=== PATIENT | female | born 1950 ===

== ENCOUNTER 2020-10-04 13:57 | Day surgery (SDC) | payer MEDICARE, BC ==
[~2020-10-04] VITALS: Ht 165.1 cm; Wt 87.2 kg
[2020-10-04] MEDS ORDERED: CHLORHEXIDINE 15 ML UDC PO ONE (14:30)
[2020-10-04] MEDS ORDERED: LACTATED RINGERS 1,000 ML IV SCH (14:30)
[2020-10-04] MEDS ORDERED: LIDOCAINE-MPF 1%, 2ML INFIL ONE (14:30)
[2020-10-04] MEDS ORDERED: PLEASE ENTER HEIGHT AND WEIGHT MC SCH (14:30)
[2020-10-04] MEDS ORDERED: PLEASE ENTER ALLERGIES MC SCH (14:30)
[2020-10-04] MEDS ORDERED: CHLORHEXIDINE 15 ML UDC ONE (14:43)
[2020-10-04 14:59] VITALS: BP 175/99
[2020-10-04] MEDS ORDERED: LOVA20TA2 PO (15:11)
[2020-10-04] MEDS ORDERED: CARV25TA12 PO (15:11)
[2020-10-04] MEDS ORDERED: HYDR-2214 PO (15:11)
[2020-10-04] MEDS ORDERED: CLOB15CR19 HOMETP (15:11)
[2020-10-04] MEDS ORDERED: ALBU2.5V NEB (15:11)
[2020-10-04] MEDS ORDERED: POTA20PA31 PO (15:11)
[2020-10-04] MEDS ORDERED: METF500T27 PO (15:11)
[2020-10-04] MEDS ORDERED: TEMA15CA PO (15:11)
[2020-10-04] MEDS ORDERED: LISI1TAB20 PO (15:11)
[2020-10-04] MEDS ORDERED: CEPH-376 PO (15:11)
[2020-10-04 15:25] LABS: BASOPHILS % (AUTO) 1 % (0-1); EOSINOPHILS % (AUTO) 1 % (1-7); LYMPHOCYTES % (AUTO) 39 % (22-44); MEAN CORPUSCULAR HEMOGLOBIN 29.3 pg (27.0-34.8); MEAN CORPUSCULAR HGB CONC 33.6 g/dL (32.4-35.8); MEAN PLATELET VOLUME 7.8 fL (7.4-10.4); MONOCYTES % (AUTO) 8 % (2-9); NEUTROPHILS % (AUTO) 51 % (42-75); PLATELET COUNT 237 x10^3/uL (130-400); RED BLOOD COUNT 4.36 x10^6/uL (3.82-5.3); RED CELL DISTRIBUTION WIDTH 13.9 % (9.6-15.2)
[2020-10-04 15:35] LABS: ALANINE AMINOTRANSFERASE 23 U/L (12-78); ALBUMIN 3.9 g/dL (3.4-5.0); ANION GAP 4 mmol/L (5-15); CALCIUM 9.5 mg/dL (8.5-10.1); CHLORIDE 106 mmol/L (98-107); CREATININE 0.67 mg/dL (0.55-1.02)
[2020-10-04 15:37] LABS: MD NO
[2020-10-04 15:38] LABS: ALKALINE PHOSPHATASE 92 U/L (45-117); BILIRUBIN,TOTAL 0.9 mg/dL (0.2-1.0); TOTAL PROTEIN 7.2 g/dL (6.4-8.2)
[2020-10-04] MEDS ORDERED: FENTANYL PF 100 MCG/2ML ONE ×2 (16:56→18:14)
[2020-10-04] MEDS ORDERED: DEXAMETHASONE 4 MG/ML, 1ML ONE (17:48)
[2020-10-04] MEDS ORDERED: PROPOFOL 10 MG/ML, 20ML ONE (17:48)
[2020-10-04] MEDS ORDERED: ONDANSETRON 2MG/ML, 2ML ONE (17:48)
[2020-10-04] MEDS ORDERED: CEFAZOLIN 1,000 MG ONE ×2 (17:48→17:51)
[2020-10-04] MEDS ORDERED: PROMETHAZINE 25 MG/ML, 1ML IVPush PRN (18:00)
[2020-10-04] MEDS ORDERED: MEPERIDINE/PF 25MG/0.5ML IVPush PRN (18:00)
[2020-10-04] MEDS ORDERED: ALBUTEROL SULFATE 2.5 MG/3 ML NPPB PRN (18:00)
[2020-10-04] MEDS ORDERED: LABETALOL 5MG/ML, 20ML IV PRN (18:00)
[2020-10-04] MEDS ORDERED: ACETAMINOPHEN 325 MG TABLET PO PRN (18:00)
[2020-10-04] MEDS ORDERED: MIDAZOLAM 1 MG/ML, 2ML IV PRN (18:00)
[2020-10-04] MEDS ORDERED: OXYcodone 5 MG/5 ML ORAL.SOL UDC PO PRN (18:00)
[2020-10-04] MEDS ORDERED: HYDROmorphone 1 MG/ML, 1ML INJ IVPush PRN (18:00)
[2020-10-04] MEDS ORDERED: hydrALAzine 20 MG/ML, 1ML IV PRN (18:00)
[2020-10-04] MEDS ORDERED: OXYcodone 5 MG/5 ML ORAL.SOL UDC ONE (18:14)
[2020-10-04] MEDS: FENTANYL PF 100 MCG/2ML IV PRN ×2 (18:19→18:34)
[2020-10-04] MEDS ORDERED: hydrALAzine 20 MG/ML, 1ML ONE (18:42)
== END 2020-10-04 20:20 | disposition home or self-care (01) ==
LOC: OR 13:57
PROVIDERS: ATTEND Surgery
DX: L08.89 Other specified local infections of the skin and subcutaneous tissue (principal); I10 Essential (primary) hypertension; E78.5 Hyperlipidemia, unspecified; E11.9 Type 2 diabetes mellitus without complications; J45.909 Unspecified asthma, uncomplicated; Z20.822 Contact with and (suspected) exposure to COVID-19; Z79.84 Long term (current) use of oral hypoglycemic drugs; Z79.891 Long term (current) use of opiate analgesic; Z79.899 Other long term (current) drug therapy; Z88.0 Allergy status to penicillin; Z82.49 Family history of ischemic heart disease and other diseases of the circulatory system
CPT/HCPCS: 11000; 71045; 80053; 82962; 85025; 87635; 93005; J0360; J0690; J1100; J2405; J2704; J3010; J7120